=== PATIENT | male | born 1955 | race Caucasian/White ===

== ENCOUNTER 2017-11-26 20:28 | Emergency (ER) | payer SELFPAY ==
[~2017-11-26 20:28] MED LIST: Sodium Chloride Irrig Solution 250 ML BOT ONE; Sterile Water Irrigation 250 ML BOT ONE
[2017-11-26] MEDS ORDERED: Bacitracin Zinc 1 Packet ONE (21:14)
[2017-11-26] MEDS ORDERED: Adacel (T-DAP) 0.5 ML VIAL ONE (21:14)
--- NOTE | 2017-11-26 21:32 | RAD ---
RADIOGRAPH LEFT THIRD DIGIT THREE VIEWS 11/26/17 HISTORY: 62-year-old male status post acute traumatic injury to third digit. FINDINGS: There is fracture at the base of the distal tuft of the left third distal phalanx. The distal fragmen t or fragments are displaced proximally, at volar and ulnar sides of the proximal fragment. There is soft tissue irregularity and defect distal to the distal phalanx. There is no extension of the fractu re to the joint surface. There are large osteophytes at the third DIP, and moderate osteophytes at th e third PIP, joints. No dislocation. IMPRESSION: Acute, traumatic, displaced fracture of left third distal tuft, and adjacent amputation of soft tissu es of the distal tip of the digit. POS: [facility]AN
[2017-11-26] MEDS ORDERED: Sulfameth/Trimethoprim DS 800-160mg TAB ONE (21:33)
== END 2017-11-26 21:34 | disposition home or self-care (01) ==
LOC: MADERS 20:28
DX: S68.113A Complete traumatic metacarpophalangeal amputation of left middle finger, initial encounter (principal); I10 Essential (primary) hypertension; F17.210 Nicotine dependence, cigarettes, uncomplicated; W23.0XXA Caught, crushed, jammed, or pinched between moving objects, initial encounter
CPT/HCPCS: 90471; 90715; J2001